=== PATIENT | female | born 1945 | race African-American/Black ===

== ENCOUNTER 2017-04-16 10:24 | Emergency (ER) | payer MEDICARE, BC | END 2017-04-16 13:30 | disposition home or self-care (01) | LOC: CED 10:24 | DX: T78.40XA Allergy, unspecified, initial encounter (principal); J98.01 Acute bronchospasm; Z88.8 Allergy status to other drugs, medicaments and biological substances | CPT/HCPCS: 96374; 96375; 99284; J2930 ==

== ENCOUNTER → 2017-04-16 | Outpatient (CLI) | payer MEDICARE, BC ==
[~2017-04-16] MED LIST: IRON PO
== END | disposition home or self-care (01) ==
LOC: CSSDAY 08:29
DX: D50.9 Iron deficiency anemia, unspecified (principal); Z79.899 Other long term (current) drug therapy
CPT/HCPCS: 96374; J1200; Q0138

== ENCOUNTER → 2017-05-03 | Outpatient (CLI) | payer MEDICARE, BC ==
--- NOTE | ~2017-05-03 | CR63 ---
[facility] A Service of [facility] RADIOLOGY TEXT RESULTS PATIENT: IBIS KIDD LOCATION: [facility] : 45 UNIT #: [id number] AGE: [address]: Kay Francisco MD SEX: F ORDER DR: [id number] [facility] [address] [facility] [place], [place] [address] [id number] O MR#: [id number] Acc #: [id number] NAME: IBIS KIDD : 1945 SEX: F STUDY DATE/TIME: 05/03/2017 12:13 UNIT: [facility] ROOM: STUDY DESCRIPTION: CR Chest 2 View Attending Physician: Kay Francisco M.D. Referring Physician: Kay Francisco M.D. Ordering Physician: Kay Francisco M.D. Primary Care Physician: Kay Francisco M.D. MEDICAL IMAGING REPORT This report is preliminary unless electronic signature is present EXAM Chest, 05/03/2017. [facility] HISTORY 71-year-old woman with unexplained weight loss. COMPARISON Chest 11/25/2016 FINDINGS Two-view chest demonstrates normal stable cardiac size and configuration. Hilar structures and mediastinal contours are preserved. Bilateral lungs are expanded and clear. Generalized demineralization with mild compression and anterior wedging mid thoracic vertebrae. IMPRESSION Stable chest with no acute chest finding. Dictated by... Larry Willett M.D. THIS IS AN ELECTRONICALLY VERIFIED REPORT Larry Willett M.D. at 05/04/2017 8:10 AM CALVIN/milton TD: 05/03/2017 19:35 JOB #: [id number] MEDICAL IMAGING REPORT Page 1 of 1 COPY
== END | disposition home or self-care (01) ==
LOC: CRAD 11:49
DX: R63.4 Abnormal weight loss (principal)
CPT/HCPCS: 71020